=== PATIENT | male | born 1960 | race Hispanic/Latino ===

== ENCOUNTER → 2020-11-06 | Outpatient (CLI) | payer OTHER ==
[~2020-11-06] MED LIST: ESOM20CA39 PO; IBUP-2071 PO; LISI1TAB51 PO; METF-444 PO; SERT-440 PO; SITA100T12 PO; TAMS-1 PO; TRAM50TA4 PO; TRAZ-185 PO
== END | disposition home or self-care (01) ==
LOC: OIH 09:37
PROVIDERS: ATTEND Family Medicine
DX: R10.13 Epigastric pain (principal)
CPT/HCPCS: 74018

== ENCOUNTER → 2023-01-22 | Outpatient (CLI) | payer OTHER ==
[~2023-01-22] MED LIST changes: -IBUP-2071 PO; +MELO10CA3 PO; -METF-444 PO; +METF-446 PO; +OXYB10TA4 PO; +SIMV-46 PO; -SITA100T12 PO; -TRAM50TA4 PO; -TRAZ-185 PO; +TRAZ-187 PO
== END | disposition home or self-care (01) ==
LOC: SHCH 10:00
PROVIDERS: ATTEND Internal Medicine Cardiovascular Disease
DX: I87.2 Venous insufficiency (chronic) (peripheral) (principal); I73.9 Peripheral vascular disease, unspecified
CPT/HCPCS: 93925; 93970

== ENCOUNTER → 2023-02-12 | Outpatient (CLI) | payer OTHER | END | disposition home or self-care (01) | LOC: SHCH 14:52 | PROVIDERS: ATTEND Internal Medicine Cardiovascular Disease | DX: I11.9 Hypertensive heart disease without heart failure (principal); R06.02 Shortness of breath; E11.9 Type 2 diabetes mellitus without complications | CPT/HCPCS: 93306 ==

== ENCOUNTER → 2023-09-05 | Outpatient (CLI) | payer OTHER ==
[~2023-09-05] MED LIST changes: +IOHEXOL 350 MG/ML 100ML INFUS..BTL IV ONE
== END | disposition home or self-care (01) ==
LOC: RAH 09:22
PROVIDERS: ATTEND Family Medicine
DX: N02.9 Recurrent and persistent hematuria with unspecified morphologic changes (principal); Z85.46 Personal history of malignant neoplasm of prostate
CPT/HCPCS: 74178; Q9967

== ENCOUNTER → 2023-11-04 | Outpatient (CLI) | payer OTHER ==
[~2023-11-04] MED LIST changes: -IOHEXOL 350 MG/ML 100ML INFUS..BTL IV ONE
[2023-11-04] MEDS: REGADENOSON 0.4 MG/5 ML PF SYG IVP ONE (16:19)
== END | disposition home or self-care (01) ==
LOC: SHCH 08:16
PROVIDERS: ATTEND Internal Medicine Cardiovascular Disease
DX: I20.0 Unstable angina (principal); R07.9 Chest pain, unspecified; R06.00 Dyspnea, unspecified
CPT/HCPCS: 78452; 96374; 93017; J2785; A9500 ×2

== ENCOUNTER → 2024-06-14 | Outpatient (CLI) | payer OTHER ==
[~2024-06-14] MED LIST changes: -ESOM20CA39 PO; +ESOM20CA51 PO; +IOHEXOL 350 MG/ML 100ML INFUS..BTL IV ONE
== END | disposition home or self-care (01) ==
LOC: RAH 10:35
PROVIDERS: ATTEND Family Medicine
DX: K42.9 Umbilical hernia without obstruction or gangrene (principal); K82.8 Other specified diseases of gallbladder; N32.89 Other specified disorders of bladder; K76.0 Fatty (change of) liver, not elsewhere classified; I70.90 Unspecified atherosclerosis; M47.815 Spondylosis without myelopathy or radiculopathy, thoracolumbar region
CPT/HCPCS: 74178; Q9967

== ENCOUNTER → 2024-07-19 | Outpatient (CLI) | payer OTHER ==
[~2024-07-19] MED LIST changes: -IOHEXOL 350 MG/ML 100ML INFUS..BTL IV ONE
--- NOTE | 2024-07-19 14:37 | HMCIMG ---
NM HIDA WITH EF/CCK REASON: RUQ PAIN COMPARISON: None TECHNIQUE: Hepatobiliary scan was performed following injection of 6.7 mCi technetium 99 Choletec. Ejection fraction calculation were performed after administration of 3 mcg of CCK slow push. FINDINGS: There is prompt hepatic parenchymal uptake. There is prompt excretion into the common duct and gallbladder. There is near complete clearing of hepatic activity by one hour constitute a normal hepatobiliary scan. Time activity curve following CCK injection yields an ejection fraction of 0. IMPRESSION: 1. Normal hepatobiliary scan. 2. Abnormal gallbladder ejection fraction of 0%.
== END | disposition home or self-care (01) ==
LOC: RAH 10:41
PROVIDERS: ATTEND Family Medicine
DX: K82.9 Disease of gallbladder, unspecified (principal); R10.11 Right upper quadrant pain
CPT/HCPCS: 78227; A9537

== ENCOUNTER 2024-08-26 03:03 | Emergency (ER) | payer OTHER ==
[~2024-08-26] VITALS: Ht 172.7 cm; Wt 141.1 kg
--- NOTE | 2024-08-26 03:15 | ERN ---
ED Note History of Present Illness Stated Complaint: C/O PAIN TO LEFT WRIST Chief Complaint: Wrist Pain/Injury Time Seen by MD: 03:05 Dictation: This is a 63-year-old male who presented to the emergency room with complaints of left wrist pain. He stated that he was pulling a rope day before yesterday and twisted his wrist. At that particular time he did not feel anything but eventually he started developing severe pain with any rotator re movements of the wrist. Following that yesterday he hurt his wrist again by pulling something and he came in as the pain was worse. No swelling no deformities no lacerations or abrasions Temperature 97.2 pulse 71 respirations 20 blood pressure 132/80 with a pulse oximetry of 99% on room air His chronic medical problems include diabetes mellitus, hypertension, hypercholesterolemia Allergies: Coded Allergies: Penicillins (Unverified Allergy, Unknown, 05/03/19) Home Meds Active Scripts Ketorolac Tromethamine (Toradol) 10 Mg Tab, 10 MG PO QID for pain for 5 Days, #20 TAB 0 Refills Prov:MACEY THOMAS MD 08/26/24 Reported Medications Meloxicam, Submicronized (Meloxicam) 10 Mg Capsule, 10 MG PO DAILY, CAP 11/20/21 Oxybutynin Chloride (Ditropan Xl) 10 Mg Tab.er.24, 10 MG PO DAILY 11/20/21 Simvastatin (Simvastatin) 40 Mg Tablet, 40 MG PO DAILY, TAB 11/20/21 Trazodone HCl (Trazodone HCl) 100 Mg Tablet, 100 MG PO DAILY, TAB 11/20/21 Metformin HCl (Metformin HCl) 1,000 Mg Tablet, 1000 MG PO BID, TAB 11/20/21 Sertraline HCl (Sertraline HCl) 100 Mg Tablet, 100 MG PO DAILY, TAB 05/03/19 Esomeprazole Magnesium (Esomeprazole Magnesium) 20 Mg Capsule., 20 MG PO DAILY, CAP 05/03/19 Tamsulosin HCl (Flomax) 0.4 Mg Cap.er.24h, 0.4 MG PO DAILY, CAPSULE. 05/03/19 Lisinopril/Hydrochlorothiazide (Lisinopril-Hctz 20-12.5 mg Tab) 1 Each Tablet, 1 EACH PO DAILY, TAB 05/03/19 Past Medical History Past Medical History: Diabetes-Type II, High Cholesterol, Hypertension Surgical History: Appendectomy Family History: Negative RN Note Reviewed/Agreed w/PFSH: Yes Review of System Dictation Constitutional: Negative for fever,chills, and weight loss Eyes: Negative for injury, pain,redness, and discharge ENT: Negative for injury,pain or swelling Cardiovascular: Negative for chest pain, palpitations, and edema Respiratory: Negative for shortness of breath, cough, and wheezing, Abdomen/GI: Negative for abdominal pain, nausea, vomiting, diarrhea, and constipation Back: Negative for injury and pain : Negative for injury, bleeding and discharge MS/Extremity: Positive for injury and denied deformity Skin: Negative for rash, and discoloration Neuro: Negative for headache, weakness, numbness, tingling, and seizure Psych: Negative for suicide ideation, homicidal ideation, and hallucinations Initial Vital Sign VS Vital Signs Date Time Temp Pulse Resp B/P (MAP) Pulse Ox O2 Delivery O2 Flow Rate FiO2 08/26/24 03:04 97.2 71 20 132/80 99 Room Air 08/26/24 04:25 0 21 Physical Exam Dictation General: awake, alert, NAD Head/Face: Normocephalic, atraumatic Eyes: PERRL, EOMI, vision at baseline ENT: oral cavity clear, TMs clear, no signs of infection Neck: Trachea midline, supple, no nuchal rigidity Cardiovascular: RRR, normal S1/S2, No MRGs, no JVD Respiratory: CTAB, no respiratory distress, No rales or wheezes Abdomen: Soft, non-tender, non-distended, normal bowel sounds, no guarding or rebound. Skin: Warm, dry, normal turgor, no rash MS/Extremity: Pulses equal, no cyanosis, neurovascular intact, FROM left wrist near the radial area is tender to palpation but I do not feel any bony deformities. Any rotator a movement patient was complaining of tenderness and pain. Hand movements were normal Neuro: COAx4, GCS 15, strength 5/5, CN 2-12 intact, normal cerebellar exam, normal gait, Psych: Normal behavior, mood, and affect normal Extremities-trace edema without any palpable cords, Homans sign is negative Results (Laboratory/Radiology) Labs Reviewed?: Yes ED Course ED Course Orders Procedure Category Date Status Time Wrist Comp 3+Vws Lt RAD 08/26/24 Taken 03:11 Ketorolac PHA 08/26/24 Complete Tromethamine 30mg/Ml 04:00 Current Medications Medications (Trade) Dose Ordered Sig/Karson Route PRN Reason Start Time Stop Time Status Last Admin Dose Admin Ketorolac Tromethamine (toRADol) 30 mg ONCE ONCE IM 08/26/24 04:00 08/26/24 04:01 DC 08/26/24 04:04 Vital Signs Date Time Temp Pulse Resp B/P (MAP) Pulse Ox O2 Delivery O2 Flow Rate FiO2 08/26/24 04:25 97.5 74 16 128/78 99 Room Air* 0 21 08/26/24 03:04 97.2 71 20 132/80 99 Room Air We will perform imaging and administer medications according to the patient's complaint. Once the results are available, will review and personally interpreted the labs to rule out any acute life-threatening emergency the trach require immediate intervention and treatment. I will then re-evaluate the patient after treatment and diagnostic exams have return to determine whether the patient requires any further testing, can safely be discharged home or need further admission to hospital for additional treatment and evaluation. I reviewed the x-ray personally and I did not see any obvious fracture or displace meant. I also did not appreciate any obvious soft tissue swelling. I explained to the patient that final radiology report is still pending A left arm splint was placed, nonsteroidal trial and patient will be discharged with a referral to Orthopedics. Medical Decision Making MDM MDM: Differential diagnosis: Fracture, sprain, contusion, dislocation Rationale: Tests considered and ordered secondary to shared decision making include: Previous outside records reviewed: Old ER visits. Risk of complication and/or morbidity or mortality of patient management: None Medications-Per medication reconciliation Need for hospitalization: Patient does not meet criteria for hospitalization. Need for emergency major/minor surgery: No There are no social concerns with this patient. Prescription drug management Prescriptions will include symptomatic care Patient's prior external medical records from other ER visits were reviewed by me as indicated. Prior testing and results from previous visits were reviewed. Prior tests were taken into account with medical decision making and resource utilization, independent historian/historians were used to obtain complete medical history. I independently interpreted the test that were performed, results were reviewed by me and considered findings on radiology if ordered. Medical management and examination interpretation discussions were had by me with other qualified healthcare professionals as indicated for the patient's care. Problem List Problem List: (1) Sprain of left wrist (2) Left wrist pain DX & DISP Disposition: Discharge Departure Impression: Primary Impression: Left wrist pain Additional Impression: Sprain of left wrist Condition: Stable Scripts Ketorolac Tromethamine (Toradol) 10 Mg Tab 10 MG PO QID for pain for 5 Days, #20 TAB 0 Refills Prov: MACEY THOMAS MD 08/26/24 Additional Instructions: Patient and the caregiver have been informed of all the diagnostic tests and the imaging conducted during the today's visit to the emergency room and has verbalized understanding of the results I have personally reviewed and interpreted all diagnostic exams performed here in the ER today as well as the vital signs documented by the nursing staff. The patient is now being discharged to home and should follow up with the primary care physician or the specialist as directed by the ER staff. Follow-up with primary care provider in 1 to 2 days. Take medications as directed here in the emergency room. Okay to continue home medications unless otherwise discussed during your visit in the emergency room today. Return to your nearest emergency room if symptoms worsen or if there is no improvement. Call 911 if you need immediate assistance. Take Tylenol or Motrin [id number] as needed and if no contraindications are present. Increase oral hydration. A wound culture or urine culture was ordered here in the emergency room department please follow-up with primary care provider and advise them to get repeat ports from our facility. If you had any Edilberto wrap/splints that were applied here, please do not remove them until you see your primary care or specialty. Orthopedic referral given Referrals: PRABHJOT GARCIA M.D. (PCP) ZEN SMITH MD, ANURADHA R MD Aug 26, 2024 03:15
[2024-08-26] MEDS ORDERED: KETO10 PO (03:58)
[2024-08-26] MEDS: ketOROlac 30MG VIAL (30MG/ML) IM ONE (04:04)
[2024-08-26 04:25] VITALS: BP 128/78; PULSE 74; RESP 16; TEMP 97.6; O2SAT 99
--- NOTE | 2024-08-26 04:27 | NUR ---
CAP REFILL TO FINGERS OF LEFT HAND, LESS THAN 2 SECONDS
--- NOTE | 2024-08-26 04:27 | NUR ---
VOLAR SPLINT TO LEFT WRIST
--- NOTE | 2024-08-26 09:05 | HMCIMG ---
WRIST COMP 3+VWS LT HISTORY: Injury COMPARISON: None TECHNIQUE: 2 images of left wrist were obtained. FINDINGS: There is no acute displaced fracture or dislocation. Degenerative changes are seen. IMPRESSION: 1. Findings as described above.
== END 2024-08-26 04:35 | disposition home or self-care (01) ==
LOC: EDH 03:03
DX: S63.592A Other specified sprain of left wrist, initial encounter (principal); E11.9 Type 2 diabetes mellitus without complications; E78.00 Pure hypercholesterolemia, unspecified; I10 Essential (primary) hypertension; Z79.1 Long term (current) use of non-steroidal anti-inflammatories (NSAID); Z79.84 Long term (current) use of oral hypoglycemic drugs; Z79.899 Other long term (current) drug therapy; Z88.0 Allergy status to penicillin; Z90.49 Acquired absence of other specified parts of digestive tract; X50.1XXA Overexertion from prolonged static or awkward postures, initial encounter; Y93.89 Activity, other specified; Y92.89 Other specified places as the place of occurrence of the external cause; Y99.8 Other external cause status
CPT/HCPCS: 99283; 73110; 29125; 96372; J1885

== ENCOUNTER 2025-03-12 19:09 | Observation (INO) | payer OTHER ==
[~2025-03-12] VITALS: Ht 172.7 cm; Wt 148.8 kg
[~2025-03-12 19:09] MED LIST changes: +KETO10 PO; -TAMS-1 PO; +TAMS-55 PO
--- NOTE | 2025-03-12 19:56 | NUR ---
BLADDER SCANNED PT AT THIS TIME, 638ML OF URINE BEING RETAINED IN BLADDER./SAY
[2025-03-12 20:01] LABS: IMMATURE GRANULOCYTE ABSOLUTE 0.05 K/uL (0-1); NUCLEATED RED BLOOD CELLS 0.0 % (0.0-0.19); PLATELET COUNT (AUTO) 285 K/uL (130-400); RED BLOOD CELL COUNT(AUTO) 4.82 MIL/uL (4.50-6.20); RED CELL DISTRIBUTION WIDTH 18.6 % (11.0-15.5); WHITE BLOOD COUNT (AUTO) 11.2 K/uL (4.8-10.8)
[2025-03-12 20:08] LABS: CREATININE 0.7 mg/dL (0.5-1.3); GLOMERULAR FILTR. RATE CALC 104.0 mL/min (>90); GLUCOSE,RANDOM 109.0 mg/dL (70-105); SODIUM SERUM 142.0 mmol/L (136-145); UREA NITROGEN, BLOOD 17.0 mg/dL (7-18)
--- NOTE | 2025-03-12 20:38 | NUR ---
ATTEMPTED TO INSERT BUSTAMANTE CATHETER THREE TIMES WITH A 16F, 16F COUDE, AND A 14F COUDE WITH NO SUCCESS AT THIS TIME. ED MD AWARE AT THIS TIME./SAY
--- NOTE | 2025-03-12 21:20 | NUR ---
PT URINATED AFTER BUSTAMANTE CATHETER ATTEMPTS, BLADDER SCAN SHOWS 540 MLS OF URINE IN BLADDER AT THIS TIME./SAY
--- NOTE | 2025-03-12 21:22 | ERN ---
General Chief Complaint: Urinary Retention Stated Complaint: URINARY RETENTION WITH BLOOD Time Seen by MD: 19:20 History of Present Illness Initial Comments 64-year-old male with no past medical history beyond prostate cancer for which he was treated with radiation approximately six months ago. Patient has been unable to urinate for proximally 12 hours. And when he does finally evacuate anything out of his bladder it is blood. He does have fevers and chills. Allergies: Coded Allergies: Penicillins (Unverified Allergy, Unknown, 05/03/19) Home Meds Active Scripts Ketorolac Tromethamine (Toradol) 10 Mg Tab, 10 MG PO QID for pain for 5 Days, #20 TAB 0 Refills Prov:MACEY THOMAS MD 08/26/24 Reported Medications Meloxicam, Submicronized (Meloxicam) 10 Mg Capsule, 10 MG PO DAILY, CAP 11/20/21 Oxybutynin Chloride (Ditropan Xl) 10 Mg Tab.er.24, 10 MG PO DAILY 11/20/21 Simvastatin (Simvastatin) 40 Mg Tablet, 40 MG PO DAILY, TAB 11/20/21 Trazodone HCl (Trazodone HCl) 100 Mg Tablet, 100 MG PO DAILY, TAB 11/20/21 Metformin HCl (Metformin HCl) 1,000 Mg Tablet, 1000 MG PO BID, TAB 11/20/21 Sertraline HCl (Sertraline HCl) 100 Mg Tablet, 100 MG PO DAILY, TAB 05/03/19 Esomeprazole Magnesium (Esomeprazole Magnesium) 20 Mg Capsule.dr, 20 MG PO DAILY, CAP 05/03/19 Tamsulosin HCl (Flomax) 0.4 Mg Cap.er.24h, 0.4 MG PO DAILY, CAPSULE. 05/03/19 Lisinopril/Hydrochlorothiazide (Lisinopril-Hctz 20-12.5 mg Tab) 1 Each Tablet, 1 EACH PO DAILY, TAB 05/03/19 Past Medical History Past Medical History: Diabetes-Type II, High Cholesterol, Hypertension Past Surgical History: Appendectomy, Other Surgical History Other: HERNIA, radiation therapy for Prostate CA Family History Family History: Negative Constitutional: (+) chills, (+) fever EENTM: (-) eye pain, (-) blurred vision, (-) tearing, (-) double vision, (-) ear pain, (-) ear discharge, (-) nose pain, (-) nose congestion, (-) throat pain, (-) Throat swelling, (-) mouth pain, (-) tooth pain, (-) mouth swelling, (-) other documentation Respiratory: (-) cough, (-) orthopnea, (-) short of breath, (-) stridor, (-) wheezing, (-) other documentation Cardiovascular: (-) chest pain, (-) edema, (-) palpitations, (-) syncope, (-) dyspnea on exertion, (-) other documentation Gastrointestinal/Abdominal: (-) nausea, (-) vomiting, (-) diarrhea, (-) abdominal pain, (-) abdominal distention, (-) constipation, (-) rectal bleeding, (-) dark stool/melena, (-) other documentation Genitourinary: (+) hematuria, (+) other documentation (Urinary retention) Musculoskeletal: (-) Neck pain, (-) back pain, (-) Flank Pain, (-) joint pain, (-) joint swelling, (-) muscle pain, (-) muscle stiffness, (-) gout, (-) other documentation Physical Exam General Appearance: (+) mild distress Orientation: (+) alert, (+) oriented x 3 Head/Face Trauma: No Eye: bilateral eye normal inspection, bilateral eye PERRL, bilateral eye EOMI Ear, Nose, Throat: (+) hearing grossly normal, (+) normal ENT inspection, (+) moist mucous membraine Neck: (+) normal inspection, (+) supple Respiratory: (+) chest non-tender, (+) lungs clear, (+) well ventilated Heart: (+) regular, (+) no gallop Gastrointestinal: (+) soft, (+) non-tender, (+) bowel sound present Genital: (+) normal exam Results Laboratory and Microbiology Lab and Micro Result Laboratory Tests Test 03/12/25 19:50 White Blood Count 11.2 K/uL (4.8-10.8) H Red Blood Count 4.82 MIL/uL (4.50-6.20) Hemoglobin 12.3 g/dL (14.0-18.0) L Hematocrit 38.3 % (42-54) L Mean Corpuscular Volume 79.5 fL (79-99) Mean Corpuscular Hemoglobin 25.5 pg (27.0-33.0) L Mean Corpuscular Hemoglobin Concent 32.1 g/dL (32.0-36.0) Red Cell Distribution Width 18.6 % (11.0-15.5) H Platelet Count 285 K/uL (130-400) Mean Platelet Volume 9.5 fL (7.5-10.5) Immature Granulocyte % (Auto) 0.4 % (0-1) Neutrophils (%) (Auto) 67.7 % (40.0-77.0) Lymphocytes (%) (Auto) 20.4 % (21.0-51.0) L Monocytes (%) (Auto) 8.6 % (3.0-13.0) Eosinophils (%) (Auto) 2.3 % (0.0-8.0) Basophils (%) (Auto) 0.6 % (0.0-5.0) Neutrophils # (Auto) 7.6 K/uL (1.8-7.7) Lymphocytes # (Auto) 2.3 K/uL (1.0-4.8) Monocytes # (Auto) 1.0 K/uL (0.1-1.0) Eosinophils # (Auto) 0.26 K/uL (0.00-0.70) Basophils # (Auto) 0.07 K/uL (0.00-0.20) Absolute Immature Granulocyte (auto 0.05 K/uL (0-1) Nucleated Red Blood Cells 0.0 % (0.0-0.19) Red Blood Cell Morphology See comments Sodium Level 142 mmol/L (136-145) Potassium Level 3.7 mmol/L (3.5-5.1) Chloride Level 105 mmol/L (101-111) Carbon Dioxide Level 27 mmol/L (21-32) Blood Urea Nitrogen 17 mg/dL (7-18) Creatinine 0.7 mg/dL (0.5-1.3) Glomerular Filtration Rate Calc 104 mL/min (>90) Random Glucose 109 mg/dL (70-105) H Total Calcium 8.4 mg/dL (8.5-10.1) L MDM MDM: Differential diagnosis: Clearly the patient has urinary retention a bladder s can showed 600 cc of fluid in his bladder. Differential diagnosis could be a urethral stricture from the radiation therapy it could be a prostatitis it could be a kidney stone. Rationale: Tests considered and ordered secondary to shared decision making include: Previous outside records reviewed: Old ER visits. Risk of complication and/or morbidity or mortality of patient management: None Medications-Per medication reconciliation Need for hospitalization: Patient does meet criteria for hospitalization. Need for emergency major/minor surgery: No There are no social concerns with this patient. Prescription drug management Prescriptions will include symptomatic care Patient's prior external medical records from other ER visits were reviewed by me as indicated. Prior testing and results from previous visits were reviewed. Prior tests were taken into account with medical decision making and resource utilization, independent historian/historians were used to obtain complete medical history. I independently interpreted the test that were performed, results were reviewed by me and considered findings on radiology if ordered. ED Course Orders Procedure Category Date Status Time Bladder Scan CPOE 03/12/25 Transmitted 19:40 Nurse Driven Jones MICHELINE 03/12/25 In Process Removal Pro 19:40 Cbc With Differential LAB 03/12/25 Complete 19:40 Urinalysis Profile LAB 03/12/25 Logged 19:40 Basic Metabolic Panel LAB 03/12/25 Complete 19:40 Ct Abdomen/Pelvis W/O CT 03/12/25 Logged Contrast 21:06 Bladder Scan CPOE 03/12/25 Transmitted 21:16 Morphine 4mg Syg PHA 03/12/25 In Process (Morphine 4mg Syg) 21:30 Current Medications Medications (Trade) Dose Ordered Sig/Karson Route PRN Reason Start Time Stop Time Status Last Admin Dose Admin Morphine Sulfate (morPHINE 4MG SYG) 3 mg Q4H PRN IVP SEVERE PAIN (7-10) 03/12/25 21:30 03/19/25 21:29 Vital Signs Date Time Temp Pulse Resp B/P (MAP) Pulse Ox O2 Delivery O2 Flow Rate FiO2 03/12/25 19:55 88 20 138/88 99 Room Air* 0 21 03/12/25 19:10 98.2 90 20 189/102 97 Room Air DX & DISP Disposition: Inpatient Departure Impression: Primary Impression: Urinary retention with incomplete bladder emptying Condition: Stable Referrals: PRABHJOT GARCIA M.D. (PCP) YOBANI MCCALL MD Mar 12, 2025 21:21
--- NOTE | 2025-03-12 21:50 | NUR ---
PATIENT FELT URGE TO URINATE, ATTEMPTED TO VOID IN THE URINAL BUT DID NOT MAKE IT IN TIME AND BEGAN TO URINATE ON THE FLOOR, URINAL PROVIDED TO PATIENT AND COLLECTED 150 CC IN URINAL. POST BLADDER SCAN READING IS 117 MLS OF URINE IN BLADDER./SAY
[2025-03-12 21:59] LABS: APPEARANCE,URINE CLOUDY (CLEAR); GLUCOSE, URINE (UA) NEGATIVE (NEGATIVE); LEUKOCYTE ESTERASE ,URINE NEGATIVE Leu/uL (NEGATIVE); NITRATE,URINE NEGATIVE (NEGATIVE); OCCULT BLOOD,URINE LARGE (NEGATIVE)
[2025-03-12] MEDS ORDERED: LACTULOSE 20 GM/30 ML UDCUP PO PRN (22:00)
[2025-03-12 22:01] LABS: ADD UA MICROSCOPIC YES
--- NOTE | 2025-03-12 22:02 | HP ---
[facility] HISTORY & PHYSICAL Date Patient Seen: Mar 12, 2025 Time of Visit: 2315 Supervising Physician: [Dr.Ricardo Santoro] Primary Care Physician: [Dr. Tata Yoo ] Outpatient Specialists: [ ] Inpatient Consults: [Dr. Cutler-urology ] PROBLEM LIST: Gross hematuria-POA Suspected cystitis-POA Urinary retention-POA HX of prostate CA s/p radiation 5 years ago, on remission Primary HTN Diabetes mellitus HLD Mood disorder Morbid obesity PLAN: -Admit to PCCU for close monitoring -Bladder scan q6H, straight cath if PVR >300 mls -Urologist, Dr. Cutler on-board and discussed eval and recx with the patient -IV antibiotic Cefepime for cystitis coverage -Serial H&H q6h, transfuse if Hg drops below 8 -Multimodal pain management -Scheduled bladder training q2H, Flomax therapy and hold Ditropan at this time HPI: [Patient is a 64-year-old male with PMH significant for prostate CA s/p radiation on remission x 5 years, DM, HLD, HTN, mood disorders and morbid obesity who has presented to the ED concerning a 2-day duration difficulty in urination then suddenly this afternoon, has started having hematuria. He denies suprapubic pain but mainly dysuria. NO other constitutional symptoms. At the ED, significant urinary retention was noted and multiple attempts to insert indwelling catheter including coude was made without success. ED MD consulted Dr. Cutler and ordered antibiotics and prepare for possible cystoscopy. At the time of my assessment, patient had just received discussion with himself and further plans. Patient claims he finally urinated and the bladder scan had gone down from 500 mls to [address] AP pending result. We will pursue with monitoring of his hematuria and PVR as well as continue IV Cefepime. Goals of care were discussed with the patient verbalizing understanding and agreem ent. PAST MEDICAL HX: see above PAST SURGICAL HX: noncontributory SOCIAL HISTORY: No tobacco, ETOH, or illicit drug use Coded Allergies: Penicillins (Unverified Allergy, Unknown, 05/03/19) REVIEW OF SYSTEMS: 12 point ROS reviewed with patient. Pertinent positives mentioned above. Otherwise negative. PHYSICAL EXAM: GENERAL: alert, awake oriented x 3, morbidly obese HEENT: EOMI, Sclera non icteric, moist mucosa NECK: Supple, no JVD, trachea midline LUNGS: Clear breath sounds bilaterally. No wheezes HEART: Regular rate and rhythm. Normal S1 and S2, without murmurs ABD: Abdomen soft, nontender. Bowel sounds present EXT: No clubbing cyanosis or edema NEURO: Alert and oriented to person, follows commands Vital Signs (last 8hr) Date Time Temp Pulse Resp B/P (MAP) Pulse Ox O2 Delivery O2 Flow Rate FiO2 03/12/25 19:55 88 20 138/88 99 Room Air* 0 21 03/12/25 19:10 98.2 90 20 189/102 97 Room Air LABS: Hematology Labs: Test 03/12/25 19:50 Range/Units White Blood Count 11.2 H 4.8-10.8 K/uL Red Blood Count 4.82 4.50-6.20 MIL/uL Hemoglobin 12.3 L 14.0-18.0 g/dL Hematocrit 38.3 L 42-54 % Mean Corpuscular Volume 79.5 79-99 fL Mean Corpuscular Hemoglobin 25.5 L 27.0-33.0 pg Mean Corpuscular Hemoglobin Concent 32.1 32.0-36.0 g/dL Red Cell Distribution Width 18.6 H 11.0-15.5 % Platelet Count 285 130-400 K/uL Mean Platelet Volume 9.5 7.5-10.5 fL Immature Granulocyte % (Auto) 0.4 0-1 % Neutrophils (%) (Auto) 67.7 40.0-77.0 % Lymphocytes (%) (Auto) 20.4 L 21.0-51.0 % Monocytes (%) (Auto) 8.6 3.0-13.0 % Eosinophils (%) (Auto) 2.3 0.0-8.0 % Basophils (%) (Auto) 0.6 0.0-5.0 % Neutrophils # (Auto) 7.6 1.8-7.7 K/uL Lymphocytes # (Auto) 2.3 1.0-4.8 K/uL Monocytes # (Auto) 1.0 0.1-1.0 K/uL Eosinophils # (Auto) 0.26 0.00-0.70 K/uL Basophils # (Auto) 0.07 0.00-0.20 K/uL Absolute Immature Granulocyte (auto 0.05 0-1 K/uL Nucleated Red Blood Cells 0.0 0.0-0.19 % Red Blood Cell Morphology See comments Chemistry Labs: Test 03/12/25 19:50 Range/Units Sodium Level 142 136-145 mmol/L Potassium Level 3.7 3.5-5.1 mmol/L Chloride Level 105 101-111 mmol/L Carbon Dioxide Level 27 21-32 mmol/L Blood Urea Nitrogen 17 7-18 mg/dL Creatinine 0.7 0.5-1.3 mg/dL Glomerular Filtration Rate Calc 104 >90 mL/min Random Glucose 109 H 70-105 mg/dL Total Calcium 8.4 L 8.5-10.1 mg/dL DIAGNOSTICS / RADIOLOGY RESULTS: [ ] PLAN NEURO: Minimize central acting medications as possible. Maintain fall precautions, adequate lighting during the day PULMONARY: Supplemental 02 as needed. Maintain aspiration precautions at all times CARDIOVASCULAR: Follow hemodynamics. Vital signs per facility protocol GI & NUTRITION: Continue with nutritional support. Continue stool softeners and laxatives as needed. KIDNEYS & ELECTROLYTES: Strict monitoring of intake, output and overall fluid balance. Avoid nephrotoxic medications to the extent possible. Medications to be dosed according to renal function. Monitor electrolytes and replace as needed ENDOCRINE: Maintain blood glucose between 100-180 at all times. Hypoglycemia protocol in place INFECTIOUS DISEASE: Trend temperature, WBC and procalcitonin level Follow cultures, deescalate antibiotics as soon as possible. Panculture if new onset fever ONCOLOGY/HEMATOLOGY/COAGULATION: Monitor for s/s of bleeding Monitor hemoglobin, coagulation studies as needed SKIN: Pressure ulcer prevention per facility protocol Specialty mattress ORTHO/REHAB: Continue PT/OT Prophylaxis: Continue GI and DVT prophylaxis: no AC due to hematuria Code Status: Full Resuscitation Disposition: TBD Other: Total patient care time: 35 minutes CHELSY BARRIENTOS AGPCNP Mar 12, 2025 22:02
[2025-03-12 22:33] LABS: INR 1.05 (0.85-1.15)
--- NOTE | 2025-03-12 22:56 | NUR ---
DR. GEORGE - UROLOGY AT BEDSIDE
--- NOTE | 2025-03-12 23:00 | NUR ---
Valeria BARRIENTOS NP AT BEDSIDE
--- NOTE | 2025-03-12 23:17 | NUR ---
DR. GEORGE GAVE VERBAL ORDERS TO START PATIENT ON FLOMAX 0.4 MG BID PO AND GIVE ONE DOSE NOW, START PATIENT ON Q2HR VOIDES, AND TO BLADDER SCAN PRIOR TO THE OR./SAY
--- NOTE | 2025-03-12 23:56 | HMCIMG ---
EXAM: CT Abdomen and Pelvis Without IV contrast CLINICAL HISTORY: Patient presents with urinary retention. TECHNIQUE: Axial computed tomography images of the abdomen and pelvis without intravenous contrast. CONTRAST: No IV contrast. COMPARISON: CT dated June 14, 2024. FINDINGS: LUNG BASES: Bibasilar dependent atelectasis. No pleural effusions. LIVER: The liver is enlarged, measuring 22.1 cm in craniocaudal span, with rounded borders and mild surface nodularity along the right lobe, concerning for parenchymal liver disease. GALLBLADDER AND BILE DUCTS: The gallbladder appears within normal limits. No radioopaque gallstones are seen. No biliary ductal dilatation is evident. PANCREAS: Unremarkable. SPLEEN: The spleen is enlarged, measuring 14 cm in craniocaudal span. ADRENAL GLANDS: Unremarkable. KIDNEYS, URETERS, AND BLADDER: The kidneys appear within normal limits. No hydronephrosis or hydroureter. No urinary calculi are seen. Minimal diffuse urinary bladder wall thickening, with maximum wall thickness approximately 0.5 cm and minimal perivesical fat stranding along the anterior margin of the urinary bladder, concerning for cystitis. STOMACH AND BOWEL: Moderate amount of fecal content in the colon, concerning for constipation. No evidence of bowel obstruction, enteritis, or colitis. APPENDIX: No evidence of acute appendicitis on CT examination. PERITONEUM: No free fluid. No free air. LYMPH NODES: No lymphadenopathy is evident. REPRODUCTIVE: The prostate gland and seminal vesicles are normal. VASCULATURE: Pericardial calcifications along the right atrium and right ventricle, incompletely imaged. No evidence of abdominal aortic aneurysm. BONES: Multilevel moderate degenerative changes in the spine. No aggressive appearing osseous lesion. No acute osseous pathology. IMPRESSION: Hepatomegaly with mild surface nodularity concerning chronic parenchymal liver disease. Recommend liver function test for further evaluation. Cystitis with minimal diffuse urinary bladder wall thickening and perivesical fat stranding. Splenomegaly. Moderate amount of fecal content in the colon, concerning for constipation. Pericardial calcifications along the right atrium and right ventricle, incompletely imaged. Interval improvement in the previously noted right pleural effusion. The urinary bladder is mildly overdistended in the present examination compared to the previous CT. The remaining findings are grossly unchanged. /Hamill
[2025-03-13] VITALS (9 sets, daily range): BP systolic 133–153; BP diastolic 78–88; PULSE 63–87; RESP 18–20; TEMP 97.6–98.6; O2SAT 96–100
--- NOTE | 2025-03-13 02:16 | CONS ---
REQUESTING PHYSICIAN: Dr. Ilan Santoro from [facility]. Dear Dr. Santoro, I had the pleasure of seeing your patient in consultation for evaluation of urinary retention. HISTORY OF PRESENT ILLNESS: A 64-year-old male status post radiation therapy for prostate cancer 5 years ago with his treating urologist, Dr. Carrington. The patient presents with difficulty urinating of 2 days' duration. Apparently, 2 or 3 months ago, he had an episode of voiding difficulties. He has had a Jones catheter placed temporarily and then removed and subsequently voided satisfactorily. The patient does not recall his pre-treatment PSA or his PSA now. He is encountered lying on a gurney, much more comfortable having voided about 600 mL and now has about 100 mL only on postvoid residual, feels much more comfortable. ALLERGIES: TO PENICILLIN. HOME MEDICATIONS: Do include oxybutynin 10 mg daily. He is also on meloxicam, simvastatin, trazodone, metformin, sertraline as well as tamsulosin. The patient also takes lisinopril. PAST MEDICAL HISTORY: Significant for diabetes, hypertension and hypercholesterolemia. PAST SURGICAL HISTORY: Appendectomy. FAMILY HISTORY: Negative for kidney stones. 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 Occasionally smokes ____ drinks. REVIEW OF SYSTEMS: He has no shortness of breath or chest pain. His appetite is good. No nausea, vomiting, constipation or diarrhea. No headaches or dizziness or any nosebleeds. No joint pain, joint swelling, limitation of movement, night sweats, fever, chills, or skin rash. PHYSICAL EXAMINATION: GENERAL: Obese male, in no acute distress at this time. VITAL SIGNS: His temperature is 98 and his blood pressure is 140/80. NECK: Has no adenopathy or supraclavicular masses palpable. LUNGS: Lung tovar are clear to auscultation and percussion. HEART: Heart sounds are best heard in the fifth intercostal space, midclavicular line. ABDOMEN: Obese, soft, nontender. No masses. BACK: No CVA tenderness. EXTERNAL GENITALIA: Phallus free of any lesions. Testicles are descended bilaterally. RECTAL: Reveals a patent anus. LABORATORY DATA: White count is 11, hematocrit is 38, platelet count is 285. The patient's sodium is 142, potassium 3.7, his BUN and creatinine are 17/0.7. The patient's urinalysis is pending. IMAGING STUDIES: Reviewed today include: * A bladder scan report of about 600 mL on admission. * A CT scan of the abdomen and pelvis that shows no hydronephrosis, no masses in either kidneys, no stones and a minimally filled bladder with about 250 mL or 300 mL of urine in the bladder at the time of his CT scan. ASSESSMENT: * Prostate cancer, status post radiotherapy 5 years ago. * Lower urinary tract symptoms managed with oxybutynin and Flomax. * Urinary retention, now resolved and improved. RECOMMENDATIONS: * Stop his oxybutynin. * Resume his Flomax twice a day. * Timed voiding. * Monitor postvoid residual in the next several hours with bladder scan. * Cystoscopy is planned with placement of Jones catheter for drainage if needed. * Risks, benefits, and alternatives and potential complications ____ under anesthesia reviewed with the patient. His concerns and questions were answered. He did provide fully informed consent if needed, although he is somewhat ambivalent about proceeding with the procedure since he has just recently voided and appears to have emptied his bladder to his satisfaction. The patient's concerns and questions were extensively answered to his apparent satisfaction. At this time, he will be maintained on the operating room table for the next available operating room schedule for the next 24 hours in the event that this is needed. Otherwise, post discharge, follow up with PCP for referral to Urology as an outpatient. Thank you for the opportunity for providing consultation on your patient. TID: [id number] RECEIPT: [id number]
[2025-03-13] MEDS ORDERED: DEXTROSE 50%-WATER 50 ML DISP.SYRIN IV PRN (04:00)
[2025-03-13] MEDS ORDERED: GLUCAGON 1MG KIT 1 MG ML IM PRN (04:00)
[2025-03-13 05:33] LABS: IMMATURE GRANULOCYTE ABSOLUTE 0.04 K/uL (0-1); NUCLEATED RED BLOOD CELLS 0.0 % (0.0-0.19); PLATELET COUNT (AUTO) 302 K/uL (130-400); RED BLOOD CELL COUNT(AUTO) 4.52 MIL/uL (4.50-6.20); RED CELL DISTRIBUTION WIDTH 18.6 % (11.0-15.5); WHITE BLOOD COUNT (AUTO) 9.7 K/uL (4.8-10.8)
[2025-03-13 06:00] LABS: ASPARTATE AMINOTRANSFERASE 16.0 U/L (10-37); CREATININE 0.7 mg/dL (0.5-1.3); GLOMERULAR FILTR. RATE CALC 104.0 mL/min (>90); GLUCOSE,RANDOM 106.0 mg/dL (70-105); PHOSPHORUS 3.9 mg/dL (2.5-4.9); SODIUM SERUM 140.0 mmol/L (136-145); TOTAL PROTEIN, SERUM 7.2 g/dL (6.0-8.3); UREA NITROGEN, BLOOD 15.0 mg/dL (7-18)
[2025-03-13 06:06] LABS: % IRON SATURATION 11.6 % (30-44); IRON, SERUM 30.0 mcg/dL (65-175)
--- NOTE | 2025-03-13 10:46 | PN ---
[facility] PROGRESS NOTE Date Patient Seen: Mar 13, 2025 Time of Visit: 10:46 Supervising Physician: Adair Bullock MD Primary Care Physician: [Dr. Tata Yoo ] Outpatient Specialists: [ ] Inpatient Consults: [Dr. Cutler-urology ] PROBLEM LIST: Gross hematuria-POA Suspected cystitis-POA Urinary retention-POA HX of prostate CA s/p radiation 5 years ago, on remission Primary HTN Diabetes mellitus HLD Mood disorder Morbid obesity INTERVAL HISTORY: Patient is awake alert and oriented x3. No major overnight events. As per RN patient has been having urine output with a any hematuria. He does report penile pain post Jones catheter attempted ED H&H is stable. Chemistry unremarkable. 90s. Cystoscopy with Jones catheter placement later today per Urology recommendations. We will continue follow urology recommendations. REVIEW OF SYSTEMS: 12 point ROS reviewed with patient. Pertinent positives mentioned above. Oth erwise negative. PHYSICAL EXAM: GENERAL: alert, awake oriented x 3, morbidly obese HEENT: EOMI, Sclera non icteric, moist mucosa NECK: Supple, no JVD, trachea midline LUNGS: Clear breath sounds bilaterally. No wheezes HEART: Regular rate and rhythm. Normal S1 and S2, without murmurs ABD: Abdomen soft, nontender. Bowel sounds present EXT: No clubbing cyanosis or edema NEURO: Alert and oriented to person, follows commands Vital Signs (last 8hr) Date Time Temp Pulse Resp B/P (MAP) Pulse Ox O2 Delivery O2 Flow Rate FiO2 03/13/25 07:00 97.7 87 20 144/88 100 Room Air 03/13/25 04:17 97.5 63 18 141/79 95 Room Air LABS: Hematology Labs: Test 03/13/25 10:14 03/13/25 05:04 03/12/25 19:50 Range/Units Hemoglobin 11.6 L 14.0-18.0 g/dL Hematocrit 36.2 L 42-54 % White Blood Count 9.7 4.8-10.8 K/uL Red Blood Count 4.52 4.50-6.20 MIL/uL Mean Corpuscular Volume 79.2 79-99 fL Mean Corpuscular Hemoglobin 26.3 L 27.0-33.0 pg Mean Corpuscular Hemoglobin Concent 33.2 32.0-36.0 g/dL Red Cell Distribution Width 18.6 H 11.0-15.5 % Platelet Count 302 130-400 K/uL Mean Platelet Volume 10.1 7.5-10.5 fL Immature Granulocyte % (Auto) 0.4 0-1 % Neutrophils (%) (Auto) 65.9 40.0-77.0 % Lymphocytes (%) (Auto) 24.3 21.0-51.0 % Monocytes (%) (Auto) 7.1 3.0-13.0 % Eosinophils (%) (Auto) 1.8 0.0-8.0 % Basophils (%) (Auto) 0.5 0.0-5.0 % Neutrophils # (Auto) 6.4 1.8-7.7 K/uL Lymphocytes # (Auto) 2.4 1.0-4.8 K/uL Monocytes # (Auto) 0.7 0.1-1.0 K/uL Eosinophils # (Auto) 0.17 0.00-0.70 K/uL Basophils # (Auto) 0.05 0.00-0.20 K/uL Absolute Immature Granulocyte (auto 0.04 0-1 K/uL Nucleated Red Blood Cells 0.0 0.0-0.19 % Red Blood Cell Morphology See comments Chemistry Labs: Test 03/13/25 05:06 03/13/25 05:04 03/12/25 22:03 Range/Units Whole Blood Glucose 106 70-110 MG/DL Sodium Level 140 136-145 mmol/L Potassium Level 3.5 3.5-5.1 mmol/L Chloride Level 105 101-111 mmol/L Carbon Dioxide Level 28 21-32 mmol/L Blood Urea Nitrogen 15 7-18 mg/dL Creatinine 0.7 0.5-1.3 mg/dL Glomerular Filtration Rate Calc 104 >90 mL/min Random Glucose 106 H 70-105 mg/dL Total Calcium 8.3 L 8.5-10.1 mg/dL Phosphorus Level 3.9 2.5-4.9 mg/dL Magnesium Level 2.30 1.80-2.40 mg/dL Iron Level 30 L 65-175 mcg/dL Total Iron Binding Capacity 258 250-450 mcg/dL Percent Iron Saturation 11.6 L 30-44 % Total Bilirubin 0.8 0.2-1.0 mg/dL Direct Bilirubin 0.2 0.0-0.3 mg/dL Aspartate Amino Transf (AST/SGOT) 16 10-37 U/L Alanine Aminotransferase (ALT/SGPT) 21 12-78 U/L Alkaline Phosphatase 204 H 50-136 U/L Total Protein 7.2 6.0-8.3 g/dL Albumin 2.9 L 3.5-5.0 g/dL Lactic Acid Level 1.0 0.8-2.5 mmol/L Procalcitonin < 0.05 L 0.05-0.5 ng/mL Coagulation Labs: Test 03/12/25 22:03 Range/Units Prothrombin Time 11.1 9.6-11.6 SEC Prothromb Time International Ratio 1.05 0.85-1.15 DIAGNOSTICS / RADIOLOGY RESULTS: [ ] PLAN -Cystoscopy is planned with FC placement by DR Cutler -Follow urology recommendations -IV antibiotic Cefepime for cystitis coverage -Serial H&H q6h, transfuse if Hg drops below 8 -Multimodal pain management - Flomax 0.4mg BID per urology recs. NEURO: Minimize central acting medications as possible. Maintain fall precautions, adequate lighting during the day PULMONARY: Supplemental 02 as needed. Maintain aspiration precautions at all times CARDIOVASCULAR: Follow hemodynamics. Vital signs per facility protocol GI & NUTRITION: Continue with nutritional support. Continue stool softeners and laxatives as needed. KIDNEYS & ELECTROLYTES: Strict monitoring of intake, output and overall fluid balance. Avoid nephrotoxic medications to the extent possible. Medications to be dosed according to renal function. Monitor electrolytes and replace as needed ENDOCRINE: Maintain blood glucose between 100-180 at all times. Hypoglycemia protocol in place INFECTIOUS DISEASE: Trend temperature, WBC and procalcitonin level Follow cultures, deescalate antibiotics as soon as possible. Panculture if new onset fever ONCOLOGY/HEMATOLOGY/COAGULATION: Monitor for s/s of bleeding Monitor hemoglobin, coagulation studies as needed SKIN: Pressure ulcer prevention per facility protocol Specialty mattress ORTHO/REHAB: Continue PT/OT Prophylaxis: Continue GI and DVT prophylaxis: no AC due to hematuria Code Status: Full Resuscitation Disposition: TBD Other: ATTESTATION BY PHYSICIAN I have evaluated the patient chart, medical records, and spoke with appropriate staff. I reviewed the documentation, medical decision making, and treatment plan as noted by the mid-level provider above. I agree with the findings and plan of care. Adair Bullock MD, [facility] Mar 13, 2025 10:46
--- NOTE | 2025-03-13 18:53 | NUR ---
DCP: INITIAL ASSESSMENT Patient lives with spouse, Tomasa Zhao. He has no home services. Patient has glucometer (no insulin), BPM, cane, and CPAP at home. He is able to complete ADLs and drives. PCP is Dr. Tata Yoo. Pharmacy is [facility] in [place]. Patient voiced no safety concerns regarding returning home and states he has no difficulty with housing or buying food. DCP is home. Addendum: 03/13/25 at 1855 by CHARLEY MORALES SS Amended: Links added.
[2025-03-14 03:39] VITALS: BP 132/83; PULSE 69; RESP 20; TEMP 98.6
[2025-03-14 04:39] LABS: IMMATURE GRANULOCYTE ABSOLUTE 0.04 K/uL (0-1); NUCLEATED RED BLOOD CELLS 0.0 % (0.0-0.19); PLATELET COUNT (AUTO) 285 K/uL (130-400); RED BLOOD CELL COUNT(AUTO) 4.49 MIL/uL (4.50-6.20); RED CELL DISTRIBUTION WIDTH 18.4 % (11.0-15.5); WHITE BLOOD COUNT (AUTO) 9.7 K/uL (4.8-10.8)
[2025-03-14 05:15] LABS: ASPARTATE AMINOTRANSFERASE 17.0 U/L (10-37); CREATININE 0.9 mg/dL (0.5-1.3); GLOMERULAR FILTR. RATE CALC 97.0 mL/min (>90); GLUCOSE,RANDOM 102.0 mg/dL (70-105); SODIUM SERUM 141.0 mmol/L (136-145); TOTAL PROTEIN, SERUM 7.6 g/dL (6.0-8.3); UREA NITROGEN, BLOOD 18.0 mg/dL (7-18)
[2025-03-14 07:24] VITALS: BP 135/75; PULSE 75; RESP 20; TEMP 98.6
[2025-03-14 08:00] VITALS: O2SAT 99
[2025-03-14] MEDS ORDERED: TAMS-55 PO (10:33)
--- NOTE | 2025-03-14 10:33 | DS ---
[facility] DISCHARGE SUMMARY Date Patient Seen: Mar 14, 2025 Time of Visit: 10:33 Supervising Physician: Adair Bullock MD Primary Care Physician: [Dr. Tata Yoo ] Outpatient Specialists: [ ] Inpatient Consults: [Dr. Cutler-urology ] PROBLEM LIST: Gross hematuria-POA Suspected cystitis-POA Urinary retention-POA HX of prostate CA s/p radiation 5 years ago, on remission Primary HTN Diabetes mellitus HLD Hepatosplenomegaly Mood disorder Morbid obesity HOSPITAL COURSE: Reason for Admission: Acute urinary retention and hematuria in the setting of benign prostatic hyperplasia (BPH) with history of prostate cancer in remission. HPI This is a 64-year-old male with a past medical history of prostate cancer (s/p radiation, in remission x5 years), type 2 diabetes mellitus, hypertension, hy perlipidemia, mood disorder, and morbid obesity, who presented to the emergency department with a 2-day history of difficulty urinating, followed by sudden onset of gross hematuria. He denied suprapubic pain but reported persistent dysuria. No fever, chills, or other constitutional symptoms were noted. In the ED, bladder scan revealed significant urinary retention. Multiple attemp ts to place an indwelling catheter, including Coud catheter, were unsuccessful. Urology (Dr. Strong) was consulted. Empiric IV cefepime was initiated, and cystoscopy was considered. Following evaluation by Dr. Strong, the patient reported spontaneous urination, with repeat bladder scan improving from 500 mL to 100 mL. Hematuria began to self-resolve with continued monitoring. Antibiotics: Completed a total of 3 days of IV cefepime during hospitalization. Pain: Mild discomfort at catheter insertion site, improved with acetaminophen. Urinary Symptoms: Hematuria resolved, and spontaneous urination resumed without further retention. Cystoscopy: Deferred due to symptom resolution; outpatient follow-up recommended CHRONIC PROBLEMS: continue previous management per PCP unless otherwise indicated HALL MONITOR FINDINGS/RECOMMENDATIONS: Per urology patient to follow up in one week Increase Flomax to 0.4 mg p.o. b.i.d. PROCEDURES: as mentioned above CT Abdomen and Pelvis (Non-contrast): Hepatomegaly with mild surface nodularity concerning for underlying chronic parenchymal liver disease. Liver function tests were ordered and found to be within normal limits. Cystitis with minimal diffuse urinary bladder wall thickening and perivesical fat stranding. Splenomegaly was also noted. Moderate fecal burden in the colon suggestive of constipation, which resolved with treatment. Incidental pericardial calcifications noted along the right atrium and right ventricle. Pt hemodynamically stable and afebrile at time of discharge. PCP notified of patients admission, hospital course and discharge. New Medications: Tamsulosin HCl (Flomax) 0.4 Mg Cap.er.24h 0.4 MG PO BID, #60 CAPSULE.DR 1 Refill Continued Medications: Esomeprazole Magnesium (Esomeprazole Magnesium) 20 Mg Capsule.dr 20 MG PO DAILY, CAP Ketorolac Tromethamine (Toradol) 10 Mg Tab 10 MG PO QID for pain for 5 Days, #20 TAB 0 Refills Lisinopril/Hydrochlorothiazide (Lisinopril-Hctz 20-12.5 mg Tab) 1 Each Tablet 1 EACH PO DAILY, TAB Meloxicam, Submicronized (Meloxicam) 10 Mg Capsule 10 MG PO DAILY, CAP Metformin HCl (Metformin HCl) 1,000 Mg Tablet 1000 MG PO BID, TAB Oxybutynin Chloride (Ditropan Xl) 10 Mg Tab.er.24 10 MG PO DAILY Sertraline HCl (Sertraline HCl) 100 Mg Tablet 100 MG PO DAILY, TAB Simvastatin (Simvastatin) 40 Mg Tablet 40 MG PO DAILY, TAB Trazodone HCl (Trazodone HCl) 100 Mg Tablet 100 MG PO DAILY, TAB Discontinued Medications: Tamsulosin HCl (Flomax) 0.4 Mg Cap.er.24h 0.4 MG PO DAILY, CAPSULE. PHYSICAL EXAM: GENERAL: alert, awake oriented x 3, morbidly obese HEENT: EOMI, Sclera non icteric, moist mucosa NECK: Supple, no JVD, trachea midline LUNGS: Clear breath sounds bilaterally. No wheezes HEART: Regular rate and rhythm. Normal S1 and S2, without murmurs ABD: Abdomen soft, nontender. Bowel sounds present EXT: No clubbing cyanosis or edema NEURO: Alert and oriented to person, follows commands FOLLOW-UP: Follow-up with PCP in 2-3 days Follow up with Urology DR Cutler in one week RECOMMENDATIONS: See Discharge Instructions This case was seen and discussed with my supervising physician. More than 30 minutes spent on discharge process, including evaluation of the patient, discussion with nursing staff, medication reconciliation and follow-up appointments ATTESTATION BY PHYSICIAN I have evaluated the patient chart, medical records, and spoke with appropriate staff. I reviewed the documentation, medical decision making, and treatment plan as noted by the mid-level provider above. I agree with the findings and plan of care. Adair Bullock MD, [facility] Mar 14, 2025 10:33
--- NOTE | 2025-03-14 11:56 | NUR ---
NOTE DISCHARGE INSTRUCTIONS GIVEN TO PATIENT AND FAMILY, ALL STATED UNDERSTANDING. ALL QUESTIONS ANSWERED.
== END 2025-03-14 12:00 | disposition home or self-care (01) ==
LOC: EDH 19:09 → EDHIP 21:57 → 2DH 03-13 00:55
PROVIDERS: ADMIT Internal Medicine Pulmonary Disease; ATTEND Internal Medicine Pulmonary Disease
DX: N40.1 Benign prostatic hyperplasia with lower urinary tract symptoms (principal); R33.8 Other retention of urine; I10 Essential (primary) hypertension; E11.9 Type 2 diabetes mellitus without complications; E78.00 Pure hypercholesterolemia, unspecified; E66.01 Morbid (severe) obesity due to excess calories; R16.2 Hepatomegaly with splenomegaly, not elsewhere classified; F39 Unspecified mood [affective] disorder; Z90.49 Acquired absence of other specified parts of digestive tract; Z85.46 Personal history of malignant neoplasm of prostate; Z88.0 Allergy status to penicillin; Z79.899 Other long term (current) drug therapy; Z68.42 Body mass index [BMI] 45.0-49.9, adult
CPT/HCPCS: 85014 ×3; 85018 ×3; 96365; 96375; 99285; 80048 ×2; 85025 ×3; 85610; 86850; 86900; 86901; 87040 ×2; 83605 ×2; 81001; 36415 ×3; 74176; 84145; 96376; 96366 ×2; 83540; 83550; 80076; 83735 ×2; 84100; 82948 ×5; 80053; G0378 ×38; J2270 ×3; J0692 ×5